=== PATIENT | male | born 1965 | race Caucasian/White ===

== ENCOUNTER 2018-05-09 02:26 | Inpatient (IN) | payer OTHER ==
[2018-05-09] MEDS: SOD CHLORIDE 0.9% 680 ML IV (02:56)
[2018-05-09 02:57] LABS: MODE ROOM AIR; MetHgb Venous 0.3 %; Sample Type Blood venous; Site VENOUS LINE; Venous COHb 0.3 %; Venous Fraction OxyHgb 85.3 %; Venous Oxygen Sat 85.8 mmHG (55.0-75.0)
[2018-05-09 03:01] LABS: ADD MAN DIFF? NO
[2018-05-09 03:03] LABS: WHITE BLOOD COUNT 12.4 10^3/ul (4.8-10.8)
[2018-05-09 03:03] LABS: BASOPHIL # 0.1 10^3/ul (0.0-0.1); BASOPHILS % 0.5 % (0.0-2.0); EOSINOPHILS # 0.1 10^3/ul (0.0-0.5); EOSINOPHILS % 1.1 % (0.0-7.0); HEMATOCRIT 36.6 % (42.0-52.0); HEMOGLOBIN 11.8 g/dl (14.0-18.0); LYMPHOCYTES # 1.4 10^3/ul (0.8-2.9); LYMPHOCYTES % 11.4 % (15.0-51.0); MEAN CORPUSCULAR HEMOGLOBIN 25.6 pg (29.0-33.0); MEAN CORPUSCULAR HGB CONC 32.2 g/dl (32.0-37.0); MEAN CORPUSCULAR VOLUME 79.4 fl (82.0-101.0); MEAN PLATELET VOLUME 9.9 fl (7.4-10.4); MONOCYTES % 8.2 % (0.0-11.0); NEUTROPHIL # 9.7 10^3/ul (1.6-7.5); NEUTROPHILS % 78.2 % (39.0-77.0); PLATELET COUNT 408 10^3/UL (140-415); RED BLOOD COUNT 4.61 10^6/ul (4.70-6.10)
[2018-05-09] MEDS: SODIUM CHLORIDE 0.9% 1L BAG IV* (03:09)
[2018-05-09 03:23] LABS: ALBUMIN 3.2 g/dl (3.3-4.9); ALBUMIN/GLOBULIN RATIO 0.94; ALKALINE PHOSPHATASE 117 IU/L (42-121); ANION GAP 11 (5-13); ASPARTATE AMINO TRANSFERASE 12 IU/L (15-46); BILIRUBIN,INDIRECT 0.1 mg/dl (0-1.1); BILIRUBIN,TOTAL 0.1 mg/dl (0.2-1.3); BLOOD UREA NITROGEN 8 mg/dl (7-20); CALCIUM 8.8 mg/dl (8.4-10.2); CARBON DIOXIDE 27 mmol/L (21-31); CHLORIDE 92 mmol/L (97-110); CREATININE 0.93 mg/dl (0.61-1.24); Estimated GFR > 60 mL/min (>60); MAGNESIUM 1.6 mg/dl (1.7-2.5); PHOSPHORUS 2.5 mg/dl (2.5-4.9); SODIUM 130 mmol/L (135-144); TOTAL PROTEIN 6.6 g/dl (6.1-8.1)
[2018-05-09 03:34] LABS: TROPONIN-I < 0.012 ng/ml (0.000-0.120)
[2018-05-09 03:35] LABS: INR 1.02; PROTIME 13.5 Sec (11.9-14.9); PT RATIO 1.1
[2018-05-09 03:36] LABS: ALANINE AMINOTRANSFERASE < 6 IU/L (13-69); PARTIAL THROMBOPLASTIN TIME 37.3 Sec (23.0-35.0)
[2018-05-09 03:37] LABS: GLUCOSE 538 mg/dl (70-220)
[2018-05-09 04:52] LABS: ADD UMIC NO; UR ASCORBIC ACID NEGATIVE (NEGATIVE); UR BILIRUBIN (Dip) NEGATIVE (NEGATIVE); UR BLOOD (Dip) NEGATIVE (NEGATIVE); UR CLARITY CLEAR (CLEAR); UR COLOR STRAW (YELLOW); UR GLUCOSE (Dip) 3+ mg/dL (NEGATIVE); UR KETONES (Dip) NEGATIVE (NEGATIVE); UR LEUKOCYTE ESTERASE (Dip) NEGATIVE Leu/ul (NEGATIVE); UR NITRITE (Dip) NEGATIVE (NEGATIVE); UR SPECIFIC GRAVITY (Dip) 1.028 (1.003-1.030); UR TOTAL PROTEIN (Dip) NEGATIVE (NEGATIVE); UR UROBILINOGEN (Dip) 1+ mg/dL (NEGATIVE)
[2018-05-09] MEDS ORDERED: GLUCOSE GEL 15 GRAM TUBE PO ×2 (06:00)
[2018-05-09] MEDS ORDERED: DEXTROSE 50% 50 ML SYRINGE IV ×2 (06:00)
[2018-05-09] MEDS ORDERED: ONDANSETRON 4 MG INJ IV (06:00)
[2018-05-09] MEDS ORDERED: NACL 0.9% 3 ML SYG IV (06:00)
[2018-05-09] MEDS ORDERED: VANCOMYCIN 1 GM (PMX) 250 ML IVPB (06:00)
[2018-05-09] MEDS ORDERED: GLUCOSE GEL 15 GRAM TUBE BUCCAL (06:00)
[2018-05-09] MEDS ORDERED: GLUCAGON 1 MG INJ IM (06:00)
[2018-05-09] MEDS: CEFEPIME 2GM/50 ML (PMX) 50 ML IVPB (06:03)
[2018-05-09] MEDS: MAGNESIUM OXIDE 400 MG TAB PO (06:04)
[2018-05-09] MEDS: SOD CHLORIDE 0.9% 1,000 ML IV ×3 (07:04→16:02)
[2018-05-09] MEDS: INSULIN ASPART [NOVOLOG] 3 ML PEN SC ×8 (07:40→20:28)
[2018-05-09 08:16] LABS: LACTIC ACID 1.1 mmol/L (0.5-2.0)
[2018-05-09] MEDS: CEFEPIME 1GM/50 ML (PMX) 50 ML IVPB ×3 (08:19→20:37)
[2018-05-09] MEDS: FAMOTIDINE 20 MG TAB PO ×2 (08:31→20:37)
[2018-05-09] MEDS: GABAPENTIN 300 MG CAP PO (08:31)
[2018-05-09] MEDS: DULOXETINE 30 MG CAP DR PO (08:31)
[2018-05-09] MEDS: ACETAMINOPHEN 325 MG TAB PO (12:17)
[2018-05-09] MEDS: INSULIN GLARGINE [LANTus] (100 UNITS/ML) SYG SC ×2 (18:16→20:27)
[2018-05-09] MEDS: GUAIFENESIN/CODEINE 5ML CUP PO (20:36)
[2018-05-10] MEDS: SOD CHLORIDE 0.9% 1,000 ML IV ×2 (01:27→08:56)
[2018-05-10] MEDS: HYDROCODONE/APAP (5/325) TAB PO (01:32)
[2018-05-10] MEDS: ACCU-CHEK XX (01:56)
[2018-05-10] MEDS: ACETAMINOPHEN 325 MG TAB PO ×2 (04:03→17:22)
[2018-05-10 06:24] LABS: ADD MAN DIFF? NO
[2018-05-10 06:28] LABS: WHITE BLOOD COUNT 10.9 10^3/ul (4.8-10.8)
[2018-05-10 06:28] LABS: BASOPHIL # 0.1 10^3/ul (0.0-0.1); BASOPHILS % 0.6 % (0.0-2.0); EOSINOPHILS # 0.2 10^3/ul (0.0-0.5); EOSINOPHILS % 1.5 % (0.0-7.0); HEMATOCRIT 33.9 % (42.0-52.0); HEMOGLOBIN 11.1 g/dl (14.0-18.0); LYMPHOCYTES # 1.6 10^3/ul (0.8-2.9); LYMPHOCYTES % 14.2 % (15.0-51.0); MEAN CORPUSCULAR HGB CONC 32.7 g/dl (32.0-37.0); MEAN CORPUSCULAR VOLUME 79.4 fl (82.0-101.0); MEAN PLATELET VOLUME 9.4 fl (7.4-10.4); MONOCYTES % 8.9 % (0.0-11.0); NEUTROPHIL # 8.1 10^3/ul (1.6-7.5); NEUTROPHILS % 74.2 % (39.0-77.0); PLATELET COUNT 377 10^3/UL (140-415); RED BLOOD COUNT 4.27 10^6/ul (4.70-6.10); RED CELL DISTRIBUTION WIDTH 12.1 % (11.5-14.5)
[2018-05-10 06:56] LABS: MAGNESIUM 1.5 mg/dl (1.7-2.5)
[2018-05-10 07:00] LABS: ALANINE AMINOTRANSFERASE 16 IU/L (13-69); ALBUMIN 2.8 g/dl (3.3-4.9); ALBUMIN/GLOBULIN RATIO 0.87; ALKALINE PHOSPHATASE 95 IU/L (42-121); ANION GAP 8 (5-13); ASPARTATE AMINO TRANSFERASE 18 IU/L (15-46); BILIRUBIN,INDIRECT 0.1 mg/dl (0-1.1); BILIRUBIN,TOTAL 0.1 mg/dl (0.2-1.3); BLOOD UREA NITROGEN 6 mg/dl (7-20); CALCIUM 8.8 mg/dl (8.4-10.2); CARBON DIOXIDE 28 mmol/L (21-31); CHLORIDE 101 mmol/L (97-110); CREATININE 0.42 mg/dl (0.61-1.24); Estimated GFR > 60 mL/min (>60); GLUCOSE 132 mg/dl (70-220); INR 1.11; POTASSIUM 3.6 mmol/L (3.5-5.1); PROTIME 14.4 Sec (11.9-14.9); PT RATIO 1.1; SODIUM 137 mmol/L (135-144)
[2018-05-10 07:21] LABS: PARTIAL THROMBOPLASTIN TIME 33.7 Sec (23.0-35.0)
[2018-05-10] MEDS: INSULIN ASPART [NOVOLOG] 3 ML PEN SC ×7 (07:57→20:39)
[2018-05-10] MEDS: GABAPENTIN 300 MG CAP PO (08:56)
[2018-05-10] MEDS: FAMOTIDINE 20 MG TAB PO ×2 (08:56→20:39)
[2018-05-10] MEDS: DULOXETINE 30 MG CAP DR PO (08:56)
[2018-05-10] MEDS: CEFEPIME 1GM/50 ML (PMX) 50 ML IVPB (08:56)
[2018-05-10] MEDS: INSULIN GLARGINE [LANTus] (100 UNITS/ML) SYG SC (20:38)
[2018-05-10] MEDS: OXYMETAZOLINE 0.05% 15 ML NAS SPRAY NASAL (21:39)
[2018-05-11] MEDS: HYDROCODONE/APAP (5/325) TAB PO ×2 (01:40→11:51)
[2018-05-11] MEDS: ACCU-CHEK XX (02:00)
[2018-05-11 06:24] LABS: IRON 20 ug/dl (35-150)
[2018-05-11 06:33] LABS: % IRON SATURATION 8 % SAT (22-52); TOTAL IRON BINDING CAPACITY 241 ug/dl (241-421)
[2018-05-11] MEDS: INSULIN ASPART [NOVOLOG] 3 ML PEN SC ×6 (08:00→20:59)
[2018-05-11] MEDS: DULOXETINE 30 MG CAP DR PO (08:05)
[2018-05-11] MEDS: GABAPENTIN 300 MG CAP PO (08:05)
[2018-05-11] MEDS: FAMOTIDINE 20 MG TAB PO ×2 (08:05→21:00)
[2018-05-11] MEDS: IOHEXOL 14.3 MG(I)/ML (ADULT) BTL PO ×2 (13:00→20:00)
[2018-05-11] MEDS: SOD FERRIC GLUC COMPLX 125 MG in SOD CHLORIDE 0.9% 100 ML IVPB (13:36)
[2018-05-11] MEDS: LINAGLIPTIN 5 MG TABLET PO (13:39)
[2018-05-11] MEDS: INSULIN ASP PROT/ASPART (70/30) PEN SC (16:53)
[2018-05-11] MEDS: INSULIN GLARGINE [LANTus] (100 UNITS/ML) SYG SC (20:58)
[2018-05-11] MEDS: SOD CHLORIDE 0.9% 100 ML (22:54)
[2018-05-11] MEDS: IOHEXOL 300MG/ML 150 ML BTL (22:55)
[2018-05-12] MEDS ORDERED: ACCU-CHEK XX (02:00)
[2018-05-12] MEDS: HYDROCODONE/APAP (5/325) TAB PO ×2 (02:01→22:47)
[2018-05-12] MEDS: ACCU-CHEK XX (02:04)
[2018-05-12] MEDS: GABAPENTIN 300 MG CAP PO ×3 (08:19→20:57)
[2018-05-12] MEDS: LINAGLIPTIN 5 MG TABLET PO (08:19)
[2018-05-12] MEDS: DULOXETINE 30 MG CAP DR PO (08:19)
[2018-05-12] MEDS: FAMOTIDINE 20 MG TAB PO ×2 (08:19→20:57)
[2018-05-12] MEDS: INSULIN ASP PROT/ASPART (70/30) PEN SC (08:20)
[2018-05-12] MEDS: INSULIN ASPART [NOVOLOG] 3 ML PEN SC ×4 (08:21→20:57)
[2018-05-12] MEDS: SOD FERRIC GLUC COMPLX 125 MG in SOD CHLORIDE 0.9% 100 ML IVPB (14:51)
[2018-05-12] MEDS: INSULIN GLARGINE [LANTus] (100 UNITS/ML) SYG SC (20:55)
[2018-05-13] MEDS: ACCU-CHEK XX (02:00)
[2018-05-13] MEDS: INSULIN ASPART [NOVOLOG] 3 ML PEN SC ×3 (02:38→12:00)
[2018-05-13 05:56] LABS: ADD MAN DIFF? NO
[2018-05-13 05:59] LABS: BASOPHIL # 0.1 10^3/ul (0.0-0.1); EOSINOPHILS # 0.2 10^3/ul (0.0-0.5); EOSINOPHILS % 2.5 % (0.0-7.0); HEMATOCRIT 36.6 % (42.0-52.0); HEMOGLOBIN 11.7 g/dl (14.0-18.0); LYMPHOCYTES # 2.5 10^3/ul (0.8-2.9); LYMPHOCYTES % 28.5 % (15.0-51.0); MEAN CORPUSCULAR HEMOGLOBIN 26.1 pg (29.0-33.0); MEAN CORPUSCULAR VOLUME 81.5 fl (82.0-101.0); MEAN PLATELET VOLUME 9.1 fl (7.4-10.4); MONOCYTES % 10.9 % (0.0-11.0); NEUTROPHILS % 55.7 % (39.0-77.0); PLATELET COUNT 513 10^3/UL (140-415); RED BLOOD COUNT 4.49 10^6/ul (4.70-6.10)
[2018-05-13 05:59] LABS: WHITE BLOOD COUNT 8.9 10^3/ul (4.8-10.8)
[2018-05-13 06:20] LABS: ALANINE AMINOTRANSFERASE 16 IU/L (13-69); ALBUMIN 3.1 g/dl (3.3-4.9); ALBUMIN/GLOBULIN RATIO 0.86; ALKALINE PHOSPHATASE 101 IU/L (42-121); ANION GAP 4 (5-13); ASPARTATE AMINO TRANSFERASE 28 IU/L (15-46); BLOOD UREA NITROGEN 12 mg/dl (7-20); CALCIUM 9.3 mg/dl (8.4-10.2); CARBON DIOXIDE 36 mmol/L (21-31); CHLORIDE 99 mmol/L (97-110); CREATININE 0.52 mg/dl (0.61-1.24); Estimated GFR > 60 mL/min (>60); GLUCOSE 185 mg/dl (70-220); SODIUM 139 mmol/L (135-144); TOTAL PROTEIN 6.7 g/dl (6.1-8.1)
[2018-05-13] MEDS: FAMOTIDINE 20 MG TAB PO (08:29)
[2018-05-13] MEDS: GABAPENTIN 300 MG CAP PO (08:29)
[2018-05-13] MEDS: LINAGLIPTIN 5 MG TABLET PO (08:29)
[2018-05-13] MEDS: DULOXETINE 30 MG CAP DR PO (08:29)
[2018-05-13] MEDS: INSULIN ASP PROT/ASPART (70/30) PEN SC (08:30)
[2018-05-13] MEDS: SOD FERRIC GLUC COMPLX 125 MG in SOD CHLORIDE 0.9% 100 ML IVPB (12:32)
== END 2018-05-13 16:35 | disposition home or self-care (01) | DRG 638 ==
LOC: E/R 02:26 → PP2 05:37
DX: E11.65 Type 2 diabetes mellitus with hyperglycemia (principal); E87.1 Hypo-osmolality and hyponatremia; R65.10 Systemic inflammatory response syndrome (SIRS) of non-infectious origin without acute organ dysfunction; F33.2 Major depressive disorder, recurrent severe without psychotic features; E11.42 Type 2 diabetes mellitus with diabetic polyneuropathy; I10 Essential (primary) hypertension; F39 Unspecified mood [affective] disorder; F41.9 Anxiety disorder, unspecified; K21.9 Gastro-esophageal reflux disease without esophagitis; D50.9 Iron deficiency anemia, unspecified; J32.9 Chronic sinusitis, unspecified; Z79.4 Long term (current) use of insulin
CPT/HCPCS: 36415; 70460; 71045; 74178; 80053; 81003; 82728; 82803; 82962; 83036; 83540; 83605; 83735; 84100; 84484; 85025; 85610; 85730; 87040; 87086; 93005